=== PATIENT | male | born 1970 | race Caucasian/White ===

== ENCOUNTER 2023-01-22 03:22 | Inpatient (IN) | payer MEDICAID ==
[~2023-01-22] VITALS: Ht 165.1 cm; Wt 76.7 kg
--- NOTE | 2023-01-22 02:15 | NUR ---
RECEIVED REPORT FROM MELISSA GAUTHIER RN FROM [facility].
--- NOTE | 2023-01-22 03:30 | NUR ---
RECEIVED PT FROM [facility] AND SANJUANA MUELLER.
[2023-01-22 04:00] VITALS: BP 112/94
[2023-01-22 04:57] VITALS: BP 112/76
--- NOTE | 2023-01-22 05:01 | NUR ---
PT TRANSFERRED FROM [facility] TO BED/ A/O X 4, GEORGIAN SPEAKING BUT CAN UNDERSTAND AND SPEAK SIMPLE MAURITANIAN. PT ABLE TO MAKE NEEDS KNOWN. ORIENTED TO STAFF AND UNIT. PT ON RA TOLERATING WELL, BREATHING EVEN AND UNLABORED @ THIS TIME. PT IV PRESENT ON RIGHT HAND #25G SALINE LOCK, PATENT, INTACT AND FLUSHES WELL, W/ NO S & SX OF INFILTRATION @ SITE NOTED. PT HAS MOTORBOAT MECHANIC W/ CURRENT READING OD SINUS RHYTHM, HR OF 99BPM. PT URINAL IS @ BEDSIDE EASY TO REACH. VITAL SIGNS IS TAKE AND DOCUMENTED. SKIN IS WARM, DRY AND INTACT. PT BELONGINGS LISTED, AND ACCOUNTED FOR AND FILED IN THE CHART. ALL NEEDS ATTENDED. SAFETY MEASURE IN PLACE. BED IN LOWEST AND LOCKED POSITION. SIDE RAILS UP X 4. BEDSIDE TABLE AND CALL LIGHT IS WITHIN REACH. BED ALARM IS ON. WILL CONTINUE TO MONITOR PT ACCORDINGLY.
[2023-01-22] MEDS ORDERED: ZOLPIDEM TARTRATE 5 MG TABLET PO PRN (06:00)
[2023-01-22] MEDS ORDERED: MAG HYDROX/AL HYDROX/SIMETH 30 ML UDC PO PRN (06:00)
[2023-01-22] MEDS ORDERED: ONDANSETRON HCL/PF 4 MG/2 ML VIAL IVP PRN (06:00)
[2023-01-22] MEDS ORDERED: IV NS 0.9% 1,000 ML IV PRN (06:00)
[2023-01-22] MEDS: ENOXAPARIN SODIUM 40 MG/0.4 ML DISP.SYRIN SQ SCH ×2 (06:00→06:22)
[2023-01-22] MEDS ORDERED: MAGNESIUM HYDROXIDE 30 ML UDC PO PRN (06:00)
[2023-01-22] MEDS ORDERED: CEFTRIAXONE 2 G in IV D5W 100 ML IV SCH ×2 (06:00→18:00)
[2023-01-22] MEDS ORDERED: Z GUARD REMEDY 4 OZ OINT TP PRN (06:00)
[2023-01-22] MEDS: ACETAMINOPHEN 325 MG TABLET PO PRN ×3 (06:18→16:12)
--- NOTE | 2023-01-22 06:49 | NUR ---
RN CLOSING NOTE PT AWAKE & RESTING COMFORTABLY TO BED. A/O X 4, RESPONSIVE AND FOLLOWS VERBAL COMMANDS. PT ON RA TOLERATING WELL, BREATHING EVEN AND UNLABORED @ THIS TIME. PT IV PRESENT ON RIGHT HAND #20G SALINE LOCK, PATENT, INTACT AND FLUSHES WELL, W/ NO S & SX OF INFILTRATION @ SITE NOTED. PT HAS RESIDENTIAL DOOR INSTALLER W/ CURRENT READING OF SINUS TACHYCARDIA, HR OF 103 BPM. ADMINISTERED MEDICATIONS ACCORDINGLY PER MDS ORDER. SAFETY MEASURE IN PLACE. BED IN LOWEST AND LOCKED POSITION. SIDE RAILS UP X 4. BEDSIDE TABLE AND CALL LIGHT IS WITHIN REACH. BED ALARM IS ON. WILL CONTINUE TO MONITOR PT ACCORDINGLY.
--- NOTE | 2023-01-22 07:00 | NUR ---
BUTTONHOLE MACHINE OPERATOR OPENING NOTES: RECEIVED PT IN BED AWAKE, ALERT AND ORIENTED X 4 CROATIAN SPEAKING, ABLE TO MAKE NEEDS KNOWN. NO SOB OR CARDIAC DISTRESS NOTED, TELE MONITOR ATTACHED: SINUS TACHYCARDIA @103 BPM. IV ACCESS ON R HAND GAUGE 20 PATENT, INTACT AND SALINE LOCKED.SAFETY MEASURES MAINTAINED: BED LOCKED AND IN LOWEST POSITION, SIDE RAILS UP X2. CALL LIGHT IN E ASY REACH AND WILL MONITOR ACCORDINGLY.
--- NOTE | 2023-01-22 07:15 | NUR ---
RN NOTES: PATIENT ATTACHED TO IV FLUID NS 1L @ 75ML/HR.
[2023-01-22] MEDS: PANTOPRAZOLE 40 MG TABLET.DR PO SCH (07:23)
--- NOTE | 2023-01-22 07:50 | NUR ---
RN NOTES: MRSA SPECIMEN COLLECTED CALLED [facility] (LAB) FOR COST CONTROL SUPERVISOR.
[2023-01-22 08:00] VITALS: BP 120/61
--- NOTE | 2023-01-22 08:30 | NUR ---
RN NOTES: PATIENT CUT THE IV LINE. AND PT WANTED TO GO HOME BUT WILL NOT SIGN CONSENT.
[2023-01-22] MEDS ORDERED: MELA3TAB41 PO (09:43)
[2023-01-22] MEDS ORDERED: METO25TA20 PO (09:43)
[2023-01-22] MEDS ORDERED: CLOP75TA15 PO (09:43)
[2023-01-22] MEDS ORDERED: APIX5TAB PO (09:43)
[2023-01-22] MEDS ORDERED: AMIO100T4 PO (09:43)
[2023-01-22] MEDS ORDERED: AMLO5TAB4 PO (09:43)
[2023-01-22] MEDS ORDERED: FAMO20TA8 PO (09:43)
[2023-01-22] MEDS ORDERED: ATOR40TA PO (09:43)
--- NOTE | 2023-01-22 11:49 | NUR ---
RN NOTES: SEEN AD EXAMINED BY DR GONSALES WITH NEW ORDERS: PYRIDIUM 100MG TID PRN, CT ABDOMEN AND PELVIS WITHOUT CONTRAST, NORCO 5-325 PRN FOR PAIN Q4HRS, UA AND BLOOD CULTURE,CBC CMP. ORDERS NOTED AND CARRIED OUT.
[2023-01-22 12:00] VITALS: BP 130/75
[2023-01-22] MEDS: HYDROCODONE/APAP 5/325MG TABLET PO PRN ×2 (12:00→17:19)
[2023-01-22] MEDS ORDERED: PHENAZOPYRIDINE HCL 200 MG TABLET PO PRN (12:00)
[2023-01-22 12:54] LABS: BASOPHILS # (AUTO) 0.1 K/uL (0.0-0.2); BASOPHILS % (AUTO) 0.4 % (0.0-2.0); HEMATOCRIT 30 % (39-51); HEMOGLOBIN 9.9 g/dL (13.5-17.5); LYMPHOCYTES # (AUTO) 0.4 K/uL (0.8-4.8); LYMPHOCYTES % (AUTO) 1.7 % (20.0-44.0); MEAN CORPUSCULAR HGB CONC 32 g/dl (31.0-36.0); MEAN CORPUSCULAR VOLUME 87 fL (80-96); MONOCYTES % (AUTO) 4.5 % (2.0-12.0); NEUTROPHILS # (AUTO) 21.2 K/uL (1.8-8.9); NEUTROPHILS % (AUTO) 93.4 % (43.0-81.0); PLATELET COUNT (AUTO) 111 K/uL (150-450); WHITE BLOOD COUNT (AUTO) 22.7 K/uL (4.3-11.0)
--- NOTE | 2023-01-22 13:15 | NUR ---
RN NOTES: CALLED LAB FOR UA SPECIMEN TRUCK GUARD, SPOKE TO ZULEIKA.
[2023-01-22 13:40] LABS: CALCIUM, SERUM 8.9 mg/dL (8.5-10.1); CREATININE 2.6 mg/dL (0.6-1.3); POTASSIUM 4.1 mmol/L (3.5-5.1)
[2023-01-22 13:44] LABS: BAND % (MANUAL) 19 % (0.0-5.0); LYMPHOCYTES % (MANUAL) 3 % (16-48); METAMYELOCYTES % 1 % (0-0); MONOCYTES % (MANUAL) 3 % (0-11.0); MYELOCYTES % 2 % (0-0); NEUTROPHILS % (MANUAL) 72 (42-76)
[2023-01-22 15:49] LABS: BILIRUBIN,URINE NEGATIVE (NEGATIVE); COLOR,URINE YELLOW (YELLOW); LEUKOCYTE ESTERASE ,URINE 1+ (NEGATIVE); NITRITE, URINE POSITIVE (NEGATIVE); PROTEIN,URINE 2+ mg/dl (NEGATIVE); UGLUCOSE NEGATIVE (NEGATIVE); UROBILINOGEN,URINE 0.2 EU/dL (0.2)
[2023-01-22 15:58] LABS: BACTERIA,URINE 2+ /HPF (None Seen); RBC,URINE 21-50 /HPF (0-2); SQUAMOUS EPITHELIAL CELL,UR 0-2 /HPF (None Seen)
[2023-01-22 16:00] VITALS: BP 100/65
--- NOTE | 2023-01-22 18:41 | NUR ---
PASTE MIXER LIQUID CLOSING NOTES: PT IN BED AWAKE, ALERT AND ORIENTED X 4 YEMENI SPEAKING, ABLE TO MAKE NEEDS KNOWN. NO SOB OR CARDIAC DISTRESS NOTED, TELE MONITOR ATTACHED: SINUS TACHYCARDIA @110 BPM. IV ACCESS ON R HAND GAUGE 20 PATENT, INTACT AND INFUSING NS 1L @75ML/HR./.SAFETY MEASURES MAINTAINED: BED LOCKED AND IN LOWEST POSITION, SIDE RAILS UP X2. CALL LIGHT IN EASY REACH AND WILL ENDORSED TO RADIO INTERFERENCE EXPERT RN FOR CONTINUITY OF CARE.
[2023-01-22 19:07] LABS: THYROID STIMULATING HORMONE 1.192 uIU/mL (0.358-3.74)
--- NOTE | 2023-01-22 19:50 | NUR ---
TELERN FULLY AWAKE, RESTLESS, PATIENT STATED HAS SEVERE LEFT LOWER ABDOMINAL PAIN, STATED HAD NORCO TABS FEW HRS AGO WITH MILD RELIEF. PRESENTLY HAVING UNBEARABLE ABD PAIN. ABLE TO VOID 100 CC ORANGE URINE. SOME SPILLED ON HIS BED. WILL INFORM DR. MCDONALD .
[2023-01-22 20:00] VITALS: BP 115/73
[2023-01-22] MEDS: MORPHINE SULFATE INJ 4 MG/ML DISP.SYRIN IV PRN (20:35)
--- NOTE | 2023-01-22 20:35 | NUR ---
TELERAric QUACH AT BEDSIDE. POST XRAY, MORPHINE IVP ADMINISTERED , BEDREST INSTRUCTED AND TO CALL STAFF FOR FURTHER DISCOMFORTS. CALL LIGHT WITHIN REACH. SAFETY PRECAUTIONS EMPHASIZED. PAIN MGT DISCUSSED, APPEARS TO UNDERSTAND. KEPT COMFORTABLE. CLOSE WATCHED. ST 110 ON TNE MONITOR. AFEBRILE OF THIS TIME.
--- NOTE | 2023-01-22 20:55 | NUR ---
TELERAric MCDONALD AWARE ORDERS RECEIVED FOR STAT KUB AND IV PAIN MED. TO CONTINUE. KEPT NPO FOR NOW. INSTRUCTED. Addendum: 01/22/23 at 2100 by MARCELA VENTURA RN ABOVE DOCUMENTATION WRONG TIME. ORDERS RECEIVED FROM DR. MCDONALD AT 1954.
--- NOTE | 2023-01-22 21:43 | NUR ---
TELERN MAIN RESULTED . PER MD, TO KEEP PATIENT NPO TILL ABDOMINAL PAIN RESOLVES AND LET AM RESUME HIS DIET IF PATIENT CONTINOUSLY HEALS.
[2023-01-23] VITALS: BP 121/72
[2023-01-23 05:00] VITALS: BP 124/74
--- NOTE | 2023-01-23 05:45 | NUR ---
TELERN MORPHINE 3 MG IVP GIVEN FOR LEFT HIP PAIN STATED FELL 2 WEEKS AGO. NEEDS FOLLOW UP. BEDREST EMPHASIZED. WENT BACK TO SLEEP. AGREED TO HAVE IVF RESUMED.
[2023-01-23] MEDS: MORPHINE SULFATE INJ 4 MG/ML DISP.SYRIN IV PRN ×3 (05:47→21:02)
[2023-01-23 06:02] LABS: BASOPHILS % (AUTO) 0.1 % (0.0-2.0); EOSINOPHILS % (AUTO) 0.1 % (0.0-6.0); HEMATOCRIT 29 % (39-51); HEMOGLOBIN 9.7 g/dL (13.5-17.5); LYMPHOCYTES # (AUTO) 0.5 K/uL (0.8-4.8); LYMPHOCYTES % (AUTO) 3.8 % (20.0-44.0); MEAN CORPUSCULAR HGB CONC 33 g/dl (31.0-36.0); MEAN CORPUSCULAR VOLUME 88 fL (80-96); MONOCYTES # (AUTO) 0.8 K/uL (0.1-1.30); MONOCYTES % (AUTO) 5.5 % (2.0-12.0); NEUTROPHILS # (AUTO) 12.8 K/uL (1.8-8.9); NEUTROPHILS % (AUTO) 90.5 % (43.0-81.0); PLATELET COUNT (AUTO) 95 K/uL (150-450); RED BLOOD CELL COUNT(AUTO) 3.35 MIL/uL (4.5-6.0); WHITE BLOOD COUNT (AUTO) 14.1 K/uL (4.3-11.0)
[2023-01-23 06:16] LABS: CALCIUM, SERUM 9.7 mg/dL (8.5-10.1); CREATININE 2.5 mg/dL (0.6-1.3); MAGNESIUM 1.8 mg/dL (1.8-2.4); PHOSPHORUS 3.6 mg/dL (2.5-4.9); POTASSIUM 3.8 mmol/L (3.5-5.1)
[2023-01-23 06:26] LABS: THYROID STIMULATING HORMONE 1.138 uIU/mL (0.358-3.74)
--- NOTE | 2023-01-23 07:00 | NUR ---
TELERN ASLEEP, ENDORSED TO INCOMING RN. IVF INFUSING WELL.
--- NOTE | 2023-01-23 07:28 | NUR ---
RN OPENING NOTE RECEIVED PATIENT IN BED, AWAKE, A/O X3, VERBALLY RESPONSIVE AND ABLE TO MAKE NEEDS KNOWN. ON ROOM AIR, TOLERATING WELL. NO SIGNS OF ACUTE DISTRESS NOTED. ON CARDIAC MONITORING SHOWING SINUS TACH, HR @114. NOTED WITH IV ACCESS ON RIGHT HAND, INTACT AND PATENT RUNNING NS @75ML/HR. PATIENT CURRENTLY ON NPO. STILL NOTED WITH C/O LEFT HIP PAIN. WILL MEDICATE NEEDED. SAFETY MEASURE IN PLACE. BED IN LOW AND LOCKED POSITION, SIDE RAILS UP X2, CALL LIGHT PLACED WITHIN EASY REACH. WILL CONTINUE TO MONITOR PATIENT.
[2023-01-23 08:00] VITALS: BP 130/71
[2023-01-23] MEDS: HYDROCODONE/APAP 5/325MG TABLET PO PRN ×2 (08:10→18:45)
[2023-01-23] MEDS: PANTOPRAZOLE 40 MG TABLET.DR PO SCH (08:10)
[2023-01-23] MEDS: ENOXAPARIN SODIUM 40 MG/0.4 ML DISP.SYRIN SQ SCH (08:11)
[2023-01-23 08:48] LABS: BAND % (MANUAL) 2 % (0.0-5.0); LYMPHOCYTES % (MANUAL) 2 % (16-48); MONOCYTES % (MANUAL) 4 % (0-11.0); NEUTROPHILS % (MANUAL) 92 (42-76)
[2023-01-23 12:00] VITALS: BP 136/84
[2023-01-23] MEDS: IV NS 0.9% 1,000 ML IV PRN (13:45)
[2023-01-23 16:00] VITALS: BP 114/75
--- NOTE | 2023-01-23 16:07 | NUR ---
RN NOTE BLOOD CX AND URINE CX RESULT RECEIVED FROM ZACARIAS BARNES, RUTH MADE AWARE WITH NEW ORDER CARRIED OUT.
[2023-01-23 16:53] LABS: BILIRUBIN,URINE NEGATIVE (NEGATIVE); COLOR,URINE YELLOW (YELLOW); LEUKOCYTE ESTERASE ,URINE 1+ (NEGATIVE); NITRITE, URINE NEGATIVE (NEGATIVE); PH,URINE 6.5 (5.0-8.0); PROTEIN,URINE 1+ mg/dl (NEGATIVE); UGLUCOSE NEGATIVE (NEGATIVE); UROBILINOGEN,URINE 0.2 EU/dL (0.2)
[2023-01-23 17:40] LABS: BACTERIA,URINE 1+ /HPF (None Seen); MUCUS,URINE Few /LPF (None Seen); SQUAMOUS EPITHELIAL CELL,UR 0-2 /HPF (None Seen)
[2023-01-23] MEDS: PIPERACILLIN /TAZOBACTAM 3.375 G in IV D5W 50 ML IV SCH ×2 (17:42→23:31)
--- NOTE | 2023-01-23 18:30 | NUR ---
RN NOTE RECEIVED A CALL FROM [employer] [facility] [employer]. PATIENTS MRSA CAME BACK POSITIVE. MD MADE AWARE WITH ORDER CARRIED OUT.
--- NOTE | 2023-01-23 18:56 | NUR ---
RN CLOSING NOTE PATIENT IN BED, AWAKE, A/O X3, VERBALLY RESPONSIVE AND ABLE TO MAKE NEEDS KNOWN. REMAINS STABLE ON ROOM AIR, TOLERATING WELL. NO SIGNS OF ACUTE DISTRESS NOTED. WITH IV ACCESS ON RIGHT HAND, INTACT AND PATENT RUNNING NS @100ML/HR. STILL NOTED WITH C/O LEFT HIP PAIN, PAIN MEDICATION GIVEN ORDERED. SAFETY MEASURE MAINTAINED. BED IN LOW AND LOCKED POSITION, SIDE RAILS UP X2, CALL LIGHT PLACED WITHIN EASY REACH. WILL ENDORSE TO NEXT SHIFT FOR CONTINUITY OF CARE.
--- NOTE | 2023-01-23 19:31 | NUR ---
RN OPENING NOTE PATIENT AWAKE IN BED. A/OX3. NO S/S OF DISTRESS, BREATHING WITHOUT DIFFICULTY ON ROOM AIR. R-HAND #20 INTACT AND PATENT W/ NS 100ML/HR. SAFETY MEASURES IN PLACE: BED LOCKED AND AT LOWEST POSITION, RAILS UP X2, CALL RM WITHIN REACH. WILL CONTINUE TO MONITOR PATIENT.
[2023-01-23 20:00] VITALS: BP 117/70
[2023-01-23] MEDS: MUPIROCIN OINT 2% 22 GM TUBE NS SCH (21:02)
[2023-01-24] MEDS: PIPERACILLIN /TAZOBACTAM 3.375 G in IV D5W 50 ML IV SCH (05:21)
--- NOTE | 2023-01-24 06:16 | NUR ---
RN CLOSING NOTE PATIENT ASLEEP IN BED. A/OX4. NO S/S OF DISTRESS, BREATHING WITHOUT DIFFICULTY ON ROOM AIR. R-HAND #20 INTACT AND PATENT. SAFETY MEASURES IN PLACE: BED LOCKED AND AT LOWEST POSITION, RAILS UP X2, CALL RM WITHIN REACH. WILL ENDORSE TO NEXT SHIFT FOR NIHARIKA.
[2023-01-24] MEDS: MORPHINE SULFATE INJ 4 MG/ML DISP.SYRIN IV PRN ×2 (06:28→20:31)
[2023-01-24 06:33] LABS: BASOPHILS % (AUTO) 0.2 % (0.0-2.0); EOSINOPHILS % (AUTO) 0.7 % (0.0-6.0); HEMATOCRIT 29 % (39-51); HEMOGLOBIN 9.3 g/dL (13.5-17.5); LYMPHOCYTES # (AUTO) 0.6 K/uL (0.8-4.8); MEAN CORPUSCULAR HGB CONC 33 g/dl (31.0-36.0); MEAN CORPUSCULAR VOLUME 87 fL (80-96); MONOCYTES # (AUTO) 1.1 K/uL (0.1-1.30); MONOCYTES % (AUTO) 9.5 % (2.0-12.0); NEUTROPHILS # (AUTO) 10.1 K/uL (1.8-8.9); NEUTROPHILS % (AUTO) 84.6 % (43.0-81.0); PLATELET COUNT (AUTO) 105 K/uL (150-450); RED BLOOD CELL COUNT(AUTO) 3.28 MIL/uL (4.5-6.0)
[2023-01-24 06:57] LABS: CALCIUM, SERUM 9.8 mg/dL (8.5-10.1); CREATININE 2.4 mg/dL (0.6-1.3); MAGNESIUM 1.8 mg/dL (1.8-2.4); PHOSPHORUS 3.2 mg/dL (2.5-4.9); POTASSIUM 3.5 mmol/L (3.5-5.1)
--- NOTE | 2023-01-24 07:10 | NUR ---
RN OPENING NOTE PATIENT AWAKE IN BED. A/OX3. NO S/S OF DISTRESS, BREATHING WITHOUT DIFFICULTY ON ROOM AIR. R-HAND #20 C/D/I. SAFETY MEASURES IN PLACE: BED LOCKED AND AT LOWEST POSITION, RAILS UP X2, CALL RM WITHIN REACH. WILL CONTINUE TO MONITOR THE PATIENT.
[2023-01-24 08:00] VITALS: BP 142/84
[2023-01-24] MEDS: HYDROCODONE/APAP 5/325MG TABLET PO PRN ×3 (08:23→17:47)
[2023-01-24] MEDS: PANTOPRAZOLE 40 MG TABLET.DR PO SCH (08:23)
[2023-01-24] MEDS: ENOXAPARIN SODIUM 40 MG/0.4 ML DISP.SYRIN SQ SCH ×2 (08:24→09:00)
[2023-01-24] MEDS: MUPIROCIN OINT 2% 22 GM TUBE NS SCH ×2 (09:03→20:36)
[2023-01-24] MEDS: ZOSYN IVPB 2.25 G in IV D5W 50ml IV SCH ×3 (12:21→23:41)
[2023-01-24] MEDS: IV NS 0.9% 1,000 ML IV PRN (12:38)
[2023-01-24 16:00] VITALS: BP 141/92
--- NOTE | 2023-01-24 19:40 | NUR ---
MS RN OPENING NOTES - RECEIVED PATIENT RESTING IN BED. A/O X4. BREATHING EVEN AND NON-LABORED ON ROOM AIR. NOT IN APPARENT DISTRESS. VERBALIZED MILD LEFT HIP PAIN AT THIS TIME. HAS RIGHT HAND IV ACCESS #20G WITH NS RUNNING AT 100 ML/HR. NO S/S OF INFILTRATION NOTED. ABLE TO MOVE LEFT SIDE EXTREMITIES BUT WITH MILD WEAKNESS. SAFETY PRECAUTIONS IN PLACE: BED LOCKED AND IN LOW POSITION, SIDE RAILS UP X2, CALL LIGHT WITHIN REACH. WILL CONTINUE PLAN OF CARE.
[2023-01-24 20:00] VITALS: BP 115/71
--- NOTE | 2023-01-24 20:00 | NUR ---
RN CLOSING NOTE PATIENT ASLEEP IN BED. A/OX4. NO S/S OF DISTRESS, BREATHING WITHOUT DIFFICULTY ON ROOM AIR. R-HAND #20 INTACT AND PATENT. SAFETY MEASURES IN PLACE: BED LOCKED AND AT LOWEST POSITION, RAILS UP X2, CALL RM WITHIN REACH. ENDORSED TO PM SHIFT NURSE FOR NIHARIKA
--- NOTE | 2023-01-24 20:32 | NUR ---
PATIENT C/O LEFT HIP PAIN 9/10 FROM HIS FALL. ADMINISTERED PRN MORPHINE 3MG, TOLERATED WELL. WILL CONTINUE TO MANAGE PAIN.
[2023-01-24 20:41] VITALS: BP 115/71
[2023-01-25] MEDS: HYDROCODONE/APAP 5/325MG TABLET PO PRN (02:10)
--- NOTE | 2023-01-25 02:10 | NUR ---
C/O LEFT HIP PAIN 05/28. PRN MORPHINE NOT DUE YET, ADMINISTERED PRN NORCO 5-325MG AND WILL REASSESS AFTER AN HOUR.
[2023-01-25] MEDS: ZOSYN IVPB 2.25 G in IV D5W 50ml IV SCH ×4 (05:12→23:43)
[2023-01-25] MEDS: MORPHINE SULFATE INJ 4 MG/ML DISP.SYRIN IV PRN ×2 (05:13→19:46)
[2023-01-25 05:53] LABS: BASOPHILS % (AUTO) 0.3 % (0.0-2.0); EOSINOPHILS % (AUTO) 1.5 % (0.0-6.0); HEMATOCRIT 28 % (39-51); HEMOGLOBIN 9.4 g/dL (13.5-17.5); LYMPHOCYTES # (AUTO) 0.8 K/uL (0.8-4.8); LYMPHOCYTES % (AUTO) 8.5 % (20.0-44.0); MEAN CORPUSCULAR HGB CONC 34 g/dl (31.0-36.0); MEAN CORPUSCULAR VOLUME 86 fL (80-96); MONOCYTES # (AUTO) 1.3 K/uL (0.1-1.30); MONOCYTES % (AUTO) 13.4 % (2.0-12.0); NEUTROPHILS # (AUTO) 7.5 K/uL (1.8-8.9); NEUTROPHILS % (AUTO) 76.3 % (43.0-81.0); PLATELET COUNT (AUTO) 119 K/uL (150-450); RED BLOOD CELL COUNT(AUTO) 3.26 MIL/uL (4.5-6.0); WHITE BLOOD COUNT (AUTO) 9.9 K/uL (4.3-11.0)
--- NOTE | 2023-01-25 05:53 | NUR ---
ADMINISTERED PRN MORPHINE 3MG TO MANAGE LEFT HIP PAIN 05/28. TOLERATED WELL.
[2023-01-25 06:15] LABS: CALCIUM, SERUM 9.8 mg/dL (8.5-10.1); CREATININE 2.1 mg/dL (0.6-1.3); MAGNESIUM 1.9 mg/dL (1.8-2.4); PHOSPHORUS 3.2 mg/dL (2.5-4.9); POTASSIUM 3.2 mmol/L (3.5-5.1)
[2023-01-25 07:00] VITALS: BP 126/75
--- NOTE | 2023-01-25 07:04 | NUR ---
MS RN CLOSING NOTES - PATIENT AWAKE AND RESTING COMFORTABLY, ABLE TO VERBALIZE NEEDS. HOB IN SEMI-ESPINO'S. NO SOB OR NOTED, SATURATING WELL IN ROOM AIR. IN MILD DISTRESS DUE TO BREAKTHROUGH LEFT HIP PAIN. AFEBRILE. RIGHT HAND IV ACCESS INTACT, PATENT AND FLUSHING. CLEAR YELLOW URINE OUTPUT NOTED. ALL DUE MEDS GIVEN AND NEEDS ATTENDED. SAFETY PRECAUTIONS MAINTAINED. WILL ENDORSE TO NEXT SHIFT FOR NIHARIKA.
--- NOTE | 2023-01-25 07:27 | NUR ---
RN OPENING NOTE RECEIVED PATIENT IN BED, ASLEEP, EASILY AWAKENED. A/O X3, VERBALLY RESPONSIVE AND ABLE TO MAKE NEEDS KNOWN. REMAINS STABLE ON ROOM AIR, TOLERATING WELL. NO SIGNS OF ACUTE DISTRESS NOTED. WITH IV ACCESS ON RIGHT HAND, INTACT AND PATENT RUNNING NS @100ML/HR. NO C/O PAIN AT THIS TIME. SAFETY MEASURE IN PLACE. BED IN LOW AND LOCKED POSITION, SIDE RAILS UP X2, CALL LIGHT PLACED WITHIN EASY REACH. WILL CONTINUE TO MONITOR PATIENT.
[2023-01-25] MEDS: PANTOPRAZOLE 40 MG TABLET.DR PO SCH (07:53)
[2023-01-25] MEDS: ENOXAPARIN SODIUM 40 MG/0.4 ML DISP.SYRIN SQ SCH (08:33)
[2023-01-25] MEDS: MUPIROCIN OINT 2% 22 GM TUBE NS SCH ×2 (08:34→21:16)
[2023-01-25] MEDS: POTASSIUM CHLORIDE 20 MEQ TAB.PRT.SR PO SCH ×2 (09:35→10:36)
[2023-01-25] MEDS: IV NS 0.9% 1,000 ML IV PRN ×2 (09:48→23:27)
[2023-01-25 16:00] VITALS: BP 140/89
--- NOTE | 2023-01-25 18:52 | NUR ---
RN CLOSING NOTE PATIENT RESTING IN BED. A/O X3, VERBALLY RESPONSIVE AND ABLE TO MAKE NEEDS KNOWN. REMAINS STABLE ON ROOM AIR, TOLERATING WELL. NO SIGNS OF ACUTE DISTRESS NOTED. WITH IV ACCESS ON RIGHT HAND, INTACT AND PATENT RUNNING NS @100ML/HR. NO C/O PAIN AT THIS TIME. ALL DUE MEDS GIVEN. SAFETY MEASURE MAINTAINED. BED IN LOW AND LOCKED POSITION, SIDE RAILS UP X2, CALL LIGHT PLACED WITHIN EASY REACH. WILL ENDORSE TO NEXT SHIFT FOR CONTINUITY OF CARE.
[2023-01-25 20:00] VITALS: BP 139/87
--- NOTE | 2023-01-25 21:39 | NUR ---
RN MS OPENING NOTES RECEIVED PATIENT IN BED, A/O X 4 MARSHALLESE SPEAKING, ON MODERATE HIGH BACK REST POSITION. WITH LEFT HEMIPLEGIA AND HEMIPARESIS. CONTINENT AND USES URINAL. PATIENT IS IS A CHAIR BOUND WITH ASSIST. ON CARDIAC DIET NO ASPIRATION NOTED. WITH IV ACCESS AT RIGHT HAND #20G WITH NS AT 100 ML/HR INFUSING WELL NO SWELLING OR INFILTRATION NOTED AT THIS TIME. PATIENT COMPLAIN OF PAIN WITH PS OF 9/10 PAIN MEDICATION GIVEN. KEPT BED ON LOWER LOCKED POSITION, KEPT SIDE RAILS UP X 2 ALL THE TIME, KEPT CALL LIGHT WITHIN AT REACH. WILL CONTINUE TO MONITOR.
[2023-01-26] MEDS: ACETAMINOPHEN 325 MG TABLET PO PRN ×2 (05:44→14:10)
[2023-01-26] MEDS: ZOSYN IVPB 2.25 G in IV D5W 50ml IV SCH ×2 (05:57→12:50)
--- NOTE | 2023-01-26 06:42 | NUR ---
RN MS CLOSING NOTES PATIENT IS IN BED, A/O X 4 CITIZEN OF [place] SPEAKING, ON MODERATE HIGH BACK REST POSITION. WITH LEFT HEMIPLEGIA AND HEMIPARESIS. CONTINENT AND USES URINAL. PATIENT IS IS A CHAIR BOUND WITH ASSIST. ON CARDIAC DIET NO ASPIRATION NOTED. WITH IV ACCESS AT RIGHT HAND #20G WITH NS AT 100 ML/HR INFUSING WELL NO SWELLING OR INFILTRATION NOTED AT THIS TIME.ALL DUE MEDIATIONS GIVEN PM CARE RENDERED, NO COMPLAIN OF PAIN OR DISCOMFORT AT THIS TIME, NO SOB OR AND DISTRESS NOTED. KEPT BED ON LOWER LOCKED POSITION, KEPT SIDE RAILS UP X 2 ALL THE TIME, KEPT CALL LIGHT WITHIN AT REACH. WILL ENDORSED TO NEXT SHIFT FOR NIHARIKA.
[2023-01-26 07:00] VITALS: BP 116/74
--- NOTE | 2023-01-26 07:35 | NUR ---
MS RN OPENING NOTE RECEIVED PATIENT AWAKE IN BED A/O X4. ON ROOM AIR, NO S/S OF DISTRESS AND NO SOB NOTED. ABLE TO MAKE NEEDS KNOWN. IV AT RIGHT HAND NS AT 100ML/HOUR, INFUSING WELL. NO PAIN NOTED. FALL AND SAFETY PRECAUTION IN PLACE: BED LOCKED AND AT THE LOWEST POSITION, SIDE RAILS UP X2, CALL LIGHT WITHIN REACH. WILL CONTINUE TO MONITOR FOR NIHARIKA
[2023-01-26] MEDS: PANTOPRAZOLE 40 MG TABLET.DR PO SCH (08:03)
[2023-01-26] MEDS: ENOXAPARIN SODIUM 40 MG/0.4 ML DISP.SYRIN SQ SCH (08:14)
[2023-01-26] MEDS: MUPIROCIN OINT 2% 22 GM TUBE NS SCH (08:25)
[2023-01-26 10:01] LABS: BASOPHILS % (AUTO) 0.3 % (0.0-2.0); EOSINOPHILS % (AUTO) 1.5 % (0.0-6.0); HEMATOCRIT 30 % (39-51); HEMOGLOBIN 9.7 g/dL (13.5-17.5); LYMPHOCYTES % (AUTO) 15.1 % (20.0-44.0); MEAN CORPUSCULAR HGB CONC 33 g/dl (31.0-36.0); MEAN CORPUSCULAR VOLUME 87 fL (80-96); MONOCYTES # (AUTO) 1.3 K/uL (0.1-1.30); MONOCYTES % (AUTO) 20.1 % (2.0-12.0); NEUTROPHILS # (AUTO) 4.2 K/uL (1.8-8.9); PLATELET COUNT (AUTO) 138 K/uL (150-450); RED BLOOD CELL COUNT(AUTO) 3.45 MIL/uL (4.5-6.0); WHITE BLOOD COUNT (AUTO) 6.7 K/uL (4.3-11.0)
[2023-01-26 10:23] LABS: CALCIUM, SERUM 9.7 mg/dL (8.5-10.1); CREATININE 1.9 mg/dL (0.6-1.3); POTASSIUM 3.9 mmol/L (3.5-5.1)
[2023-01-26 10:29] LABS: ALBUMIN 2.3 g/dL (3.4-5.0); BILIRUBIN,TOTAL 0.6 mg/dL (0.2-1.0); MAGNESIUM 2.1 mg/dL (1.8-2.4); PHOSPHORUS 3.3 mg/dL (2.5-4.9); TOTAL PROTEIN, SERUM 7.4 g/dL (6.4-8.2)
[2023-01-26 17:07] LABS: EOSINOPHILS % (MANUAL) 1 % (0-4); LYMPHOCYTES % (MANUAL) 16 % (16-48); MONOCYTES % (MANUAL) 18 % (0-11.0); NEUTROPHILS % (MANUAL) 65 (42-76)
--- NOTE | 2023-01-26 17:55 | NUR ---
MS ACCOUNTS PAYABLE ADMINISTRATOR NOTE PATIENT DISCHARGE IN STABLE MEDICAL CONDITION. A/O X4. V/S TAKEN, STABLE AND RECORDED. NO IV ACCESS. NAME ARM BAN REMOVED. ALL BELONGINGS CHECKED AND BELONGINGS LIST SIGNED. HEALTH TEACHING AND DISCHARGE INSTRUCTIONS GIVEN AND VERBALIZED UNDERSTANDING. INSTRUCTED PATIENT IN CASE OF EMERGENCY TO CALL 911 OR GO TO THE NEAREST ER. PATIENT LEFT UNIT VIA WHEELCHAIR WITH NO SIGNS OF DISTRESS, ACCOMPANIED BY EMT TO THE LOBBY. REPORT GIVEN TO [employer] AT [facility] AT 15:45. CHARGE NURSE AWARE OF DISCHARGED.
== END 2023-01-26 17:53 | DRG 720 ==
LOC: TELE 03:22 → MED 01-23 20:29
PROVIDERS: ADMIT Nurse Practitioner Acute Care; ATTEND Internal Medicine
DX: A41.50 Gram-negative sepsis, unspecified (principal); N17.0 Acute kidney failure with tubular necrosis; D68.59 Other primary thrombophilia; I69.354 Hemiplegia and hemiparesis following cerebral infarction affecting left non-dominant side; I50.30 Unspecified diastolic (congestive) heart failure; I50.32 Chronic diastolic (congestive) heart failure; E86.1 Hypovolemia; Z16.24 Resistance to multiple antibiotics; N20.0 Calculus of kidney; N39.0 Urinary tract infection, site not specified; Z88.6 Allergy status to analgesic agent; Z99.3 Dependence on wheelchair
CPT/HCPCS: 36415; 73502; 74018; 80048-TC; 80053-TC; 80061-TC; 81001; 82570-TC; 82728-TC; 83540-TC; 83735-TC; 84100-TC; 84300-TC; 84439-TC; 84443-TC; 84484-TC; 85025-TC; 87040-TC; 87081-TC; 87086-TC; 93307-TC; A4223; G0378; J0696; J1650; J2270; J2543; J7030; J7060